=== PATIENT | female | born 1955 | race Caucasian/White ===

== ENCOUNTER 2023-06-10 09:51 | Outpatient (CLI) | payer MEDICARE, SELFPAY ==
[2023-06-10 11:50] LABS: Alanine Aminotransferase 21 U/L (6-35); Albumin Level 4.2 g/dL (3.5-5.1); Alkaline Phosphatase 88 U/L (38-126); Anion Gap 6 mmol/L (8-16); Aspartate Amino Transferase 32 U/L (14-36); Bilirubin,Total 0.7 mg/dL (0.2-1.3); Blood Urea Nitrogen 19 mg/dL (7-17); Calcium 9.1 mg/dL (8.4-10.2); Carbon Dioxide 31 mmol/L (22-30); Chloride 102 mmol/L (98-107); Cholesterol 182 mg/dL (0-200); Estimated Glomerular Filt Rate > 60; Glucose 98 mg/dL (65-110); HDL Direct 51 mg/dL; Potassium 3.7 mmol/L (3.4-5.0); Sodium 139 mmol/L (137-145); Triglycerides 133 mg/dL (<150)
[2023-06-10 11:53] LABS: Hemoglobin A1C 5.6 % (<5.7)
[2023-06-10 12:00] LABS: LDL Cholesterol Direct 89 mg/dL
[2023-06-10 12:23] LABS: Free T4 Free Thyroxine 1.87 ng/mL (0.78-2.19)
== END 2023-06-10 09:52 | disposition home or self-care (01) ==
LOC: ANHLAB 09:53
PROVIDERS: PCP Family Medicine; Visit Provider Physician Assistant
DX: Z13.1 Encounter for screening for diabetes mellitus (principal); E11.9 Type 2 diabetes mellitus without complications; E03.9 Hypothyroidism, unspecified; Z13.220 Encounter for screening for lipoid disorders
CPT/HCPCS: 36415; 80053; 80061; 83036; 84439; 84443

== ENCOUNTER 2025-08-09 07:34 | Outpatient (CLI) | payer MEDICARE, SELFPAY ==
--- OUTSIDE RECORDS SUMMARY | 2025-08-09 07:40 | XMS_ITS ---
Author Organization Unknown ENCOUNTERS Encounter Performer Location Date Diagnosis Diagnosis Status Outpatient [address] [place] [id number] [place] *Note: Encounters from your own facility or health system may be excluded. Allergies, Adverse Reactions, Alerts Allergen Type Severity Identification Date Medications Name Date Quantity Days Supplied GPI Number
--- NOTE | 2025-08-09 07:53 | ECHO_ITS ---
Patient Info Name: Chinyere Villasenor Age: 70 years : 1955 Gender: Female Ht: 66 in Wt: 286 lbs BSA: 2.53 m2 HR: 63 bpm BP: 155 / 72 mmHg Heart Rhythm: Sinus Rhythm Technical Quality: Fair Exam Date: 08/09/2025 8:16 AM Patient Status: O Admit Date: 08/09/2025 Exam Type: CA echo doppler color flow Complete two-dimensional, color flow and Doppler transthoracic echocardiogram is performed. Automatic Glove Former: Darlin Cooper Attending Provider: Jaylin Ortiz Summary 1. Complete two-dimensional, color flow and Doppler transthoracic echocardiogram is performed. 2. Left ventricular chamber dimension is normal. 3. Left ventricular systolic function is normal, estimated at 60-65. 4. There is mild concentric increased left ventricular wall thickness. 5. The left ventricular diastolic function is normal. 6. E/e' 6 is not elevated. 7. Left atrial chamber dimension is moderately enlarged. 8. There is mild aortic valve sclerosis. 9. There is mild aortic valve regurgitation. 10. There is trace mitral valve regurgitation. 11. There is trace tricuspid valve regurgitation. 12. No pulmonary hypertension, estimated pulmonary arterial systolic pressure is 23 mmHg. 13. There is trace pulmonic regurgitation. Left Ventricle E/e' 6 is not elevated. Left ventricular chamber dimension is normal. Left ventricular systolic function is normal, estimated at 60-65. There is mild concentric increased left ventricular wall thickness. The left ventricular diastolic function is normal. Right Ventricle Right ventricular chamber dimension is normal. Right ventricular systolic function is normal. and with normal TAPSE 2.5 cm. Left Atria Left atrial chamber dimension is moderately enlarged. Right Atria Right atrial chamber dimension is normal. Aortic Valve The aortic valve is trileaflet. There is mild aortic valve sclerosis. There is no aortic valve stenosis. There is mild aortic valve regurgitation. Pulmonic Valve There is trace pulmonic regurgitation. Mitral Valve There is no mitral valve stenosis. There is trace mitral valve regurgitation. Tricuspid Valve There is trace tricuspid valve regurgitation. No pulmonary hypertension, estimated pulmonary arterial systolic pressure is 23 mmHg. Pericardium/Pleural There is no pericardial effusion. Inferior Vena Cava Normal inferior vena cava with >50% collapse upon inspiration consistent with normal right atrial pressure, 5 mmHg. Aorta The aortic root size at the sinus of Valsalva is normal. Left Ventricular Outflow Tract Name Value Normal LVOT 2D LVOT Diameter 2.0 cm LVOT Doppler LVOT Peak Velocity 77 cm/s LVOT Peak Gradient 2 mmHg LVOT Mean Gradient 1 mmHg LVOT VTI 20 cm LVOT VTI/AV VTI Ratio 0.4 LVOT Stroke Volume 64 ml LVOT CO 3.5 l/min LVOT CI 1.4 l/min/m2 Pulmonic Valve Name Value Normal RVOT Doppler RVOT Peak Velocity 74 cm/s RVOT Peak Gradient 2 mmHg PV Doppler PV Peak Velocity 130 cm/s PV Peak Gradient 7 mmHg Mitral Valve Name Value Normal MV Diastolic Function MV E Peak Velocity 61 cm/s MV A Peak Velocity 50 cm/s MV E/A 1.2 MV Decel Time (PW) 251 ms MV Annular TDI MV E/e' (Septal) 8.1 MV E/e' (Lateral) 5.8 MV E/e' (Average) 6.9 Tricuspid Valve Name Value Normal TV Regurgitation Doppler TR Peak Velocity 213 cm/s TR Peak Gradient 18 mmHg Estimated PAP/RSVP RA Pressure 5 mmHg <=5 PA Systolic Pressure 23 mmHg <36 RV Systolic Pressure 23 mmHg <36 TV Annular TDI TV Lateral Merlene s' Velocity 11.6 cm/s >=9.5 Aorta Name Value Normal Ascending Aorta Ao Root Diameter (MM) 3.7 cm Ao Root Diam Index (MM) 1.4 cm/m2 Aortic Valve Name Value Normal AV Doppler AV Peak Velocity 196 cm/s AV Peak Gradient 15 mmHg AV Mean Gradient 8 mmHg AV VTI 47 cm AV Area (Cont Eq VTI) 1.4 cm2 >=3.0 AV Area (Cont Eq Augustin) 1.3 cm2 AV DI (Augustin) 0.39 AV Regurgitation 2D LVOT Area 3.2 cm2 Ventricles Name Value Normal LV Dimensions 2D/MM IVS Diastolic Thickness (2D) 1.3 cm 0.6-1.0 LVID Diastole (2D) 4.8 cm 3.8-5.2 LVIW Diastolic Thickness (2D) 1.1 cm 0.6-0.9 LVID Systole (2D) 3.2 cm 2.2-3.5 LVOT Diameter 2.0 cm LV Mass (2D Cubed) 224.51 g 67.00-162.00 LV Mass Index (2D Cubed) 89 g/m2 43-95 Relative Wall Thickness (2D) 0.48 <=0.42 LV Fractional Shortening/Ejection Fraction 2D/MM LV Fractional Shortening (2D) 34 % 27-45 LV EF (2D Teichholz) 62 % LV Diastolic Volume (4C MOD) 103 ml LV EF (4C MOD) 67 % LV Diastolic Volume (2C MOD) 114 ml LV EF (2C MOD) 65 % LV Diastolic Volume (BP MOD) 112 ml 46-106 LV Diastolic Volume Index (BP MOD) 44 ml/m2 29-61 LV Systolic Volume (BP MOD) 38 ml 14-42 LV Systolic Volume Index (BP MOD) 15 ml/m2 8-24 LV EF (BP MOD) 66 % 54-74 LV Diastolic Length (4C) 9.0 cm LV Systolic Length (4C) 7.3 cm LV Stroke Volume (4C MOD) 69 ml Atria Name Value Normal LA Dimensions LA Dimension (MM) 5.0 cm 2.7-3.8 LA Volume (4C A-L) 95 ml LA Volume (BP A-L) 95 ml RA Dimensions RA Area (4C) 20.5 cm2 <=18.0 Report Signatures
== END 2025-08-09 07:35 | disposition home or self-care (01) ==
PROVIDERS: PCP Student in an Organized Health Care Education/Training Program; Visit Provider Student in an Organized Health Care Education/Training Program
DX: R01.1 Cardiac murmur, unspecified (principal); I35.1 Nonrheumatic aortic (valve) insufficiency
CPT/HCPCS: 93306